=== PATIENT | female | born 1990 | race Caucasian/White ===

== ENCOUNTER 2018-06-09 17:25 | Inpatient (IN) | payer OTHER ==
[2018-06-09] MEDS ORDERED: ELECTROLYTE-148 SOLN 500 ML IV SCH (17:45)
[2018-06-09] MEDS ORDERED: CITRIC ACID/SODIUM CITRATE 30 ML UNIT-DOSE CUP PO ONE (17:45)
[2018-06-09 18:36] VITALS: BMI 29.1
[2018-06-09] MEDS: ELECTROLYTE-148 SOLN 1,000 ML IV SCH (18:43)
[2018-06-09 18:57] LABS: HEMATOCRIT 40.5 % (32.4-45.2); HEMOGLOBIN 13.6 GM/dL (10.7-15.3); MCH 32.5 pg (25.7-33.7); MCHC 33.7 g/dl (32.0-36.0); MEAN CELL VOLUME 96.6 fl (80-96); MEAN PLT VOLUME 9.7 fl (7.5-11.1); MONO % 5.4 % (3.8-10.2); NEUT % 90.6 % (42.8-82.8); PLATELET COUNT 213 K/MM3 (134-434); RBC 4.19 M/mm3 (3.60-5.2); WHITE BLOOD COUNT 16.5 K/mm3 (4.0-10.0)
[2018-06-09 19:11] LABS: URINE APPEARANCE CLOUDY; URINE BILIRUBIN NEGATIVE (<2.0 mg/dL); URINE COLOR YELLOW; URINE GLUCOSE (UA) NEGATIVE (NEGATIVE); URINE KETONE NEGATIVE (NEGATIVE); URINE NITRITE POSITIVE (NEGATIVE); URINE UROBILINOGEN NEGATIVE mg/dL (0.2-1.0)
[2018-06-09 19:20] LABS: INR 0.99 (0.83-1.09); PROTHROMBIN TIME (PATIENT) 11.7 SEC (9.7-13.0)
--- NOTE | 2018-06-09 19:21 | HP ---
Past Medical History - Admission History Source: Patient - Past Medical History ...: 3 ...Para: 1 ...Term: 1 ...: 0 ...Spon : 1 ...Induced : 0 ...Multiple Gestation: 0 ...LMP: 09/10/17 ...EDC by [facility]: 06/17/18 - Past Surgical History Past Surgical History: Yes: Hx Myomectomy: No Hx Transabdominal Cerclage: No - Smoking History Smoking history: Never smoked Have you smoked in the past 12 months: No - Alcohol/Substance Use Hx Alcohol Use: No - Social History Usual Living Arrangement: Yes: With Child Home Medications - Allergies Allergies/Adverse Reactions: Allergies Allergy/AdvReac Type Severity Reaction Status Date / Time No Known Allergies Allergy Verified 06/09/18 17:56 - Home Medications Home Medications: Ambulatory Orders Vitamins (Sjr) - 1 tab PO DAILY 06/09/18 Review of Systems - Review of Systems Constitutional: denies: No Symptoms, Chills, Diaphoresis, Fever, Lethargy, Loss of Appetite, Malaise, Night Sweats, Unintentional Wgt. Loss, Weakness, Other Eyes: denies: No Symptoms, Blind Spots, Blurred Vision, Double Vision, Eye Pain , Floaters, Photophobia, Recent Change in Vision, Other HENT: denies: No Symptoms, Difficult Swallowing, Ear Discharge, Ear Pain, Epistaxis, Gingival Bleeding, Hearing Loss, Mouth Swelling, Nasal Congestion, Ocular Prosthesis, Throat Pain, Toothache, Ringing in Ears, Other Neck: denies: No Symptoms, Decreased ROM, Lumps, Pain on Movement, Stiffness, Swollen Glands, Tenderness, Other Cardiovascular: denies: No Symptoms, Chest Pain, Edema, Palpitations, Shortness of Breath, Other Respiratory: denies: No Symptoms, Cough, Exercise Intolerance, Hemoptysis, Orthopnea, PND, Snoring, SOB, SOB on Exertion, Wheezing, Other Gastrointestinal: denies: No Symptoms, Abdominal Pain, Bloating, Constipation, Diarrhea, Dysphagia, Indigestion, Melena, Nausea, Rectal Bleeding, Vomiting, Vomiting Blood, Other Genitourinary: denies: No Symptoms, Burning, Discharge, Dysuria, Flank Pain, Frequency, Hematuria, Incontinence, Lesions, Menses, Pain, Testicular Mass, Testicular Pain, Testicular Swelling, Urgency, Vaginal Bleeding, Other Breasts: denies: No Symptoms Reported, See HPI, Breast Implants, Discharge from Nipple, Lumps, Pain, Skin Changes, Other Integumentary: denies: No Symptoms, Blister, Bruising, Change in Color, Eczema, Erythema, Incision, Lesions, Lump, Pallor, Pruritis, Rash, Wound, Other Endocrine: denies: No Symptoms, Excessive Sweating, Flushing, Increased Hunger, Increased Thirst, Intolerance to Cold, Intolerance to Heat, Unexplained Weight Gain, Unexplained Weight Loss, Other Hematology/Lymphatic: denies: No Symptoms, Easily Bruised, Excessive Bleeding, Swollen Glands, Other Psychiatric: denies: No Symptoms, Altered Sleep Pattern, Anxiety, Depression, Hallucinations, Panic, Paranoia, Suicidal, Other Physical Exam - Maternity Constitutional: No: Well Nourished, No Distress, Calm, Anxious, Ashen, Cachectic , Diaphoresis, Mild Distress, Moderate Distress, Severe Distress, Obese, Pallor , Poor Hygeine, Thin, Other Eyes: No: WNL, Conjunctiva Clear, EOM Intact, Cataracts, Diplopia, Occular Prosthesis, PERRL, Ptosis, Sclera Icterus, Tearing, Other HENT: No: WNL, Atraumatic, Normocephalic, Drooling, Epistaxis, Hoarseness, Nasal Congestion, Pharyngeal Erythema, Rhinnorhea, Thrush, Tonsillar Exudate, Other Neck: No: WNL, Supple, Trachea Midline, Decreased ROM, Lymphadenopathy, Rigid, Tenderness, Thyromegaly, Other Cardiovascular: No: WNL, Regular Rate and Rhythm, Bradycardia, Tachycardia, Pulse Irregular, Bruit, JVD, Gallop, Murmur, Rub, S1, S2, S3, S4, Varicosities, Other Breast(s): No: WNL, Left, Right, Breast Implants, Dimpling, Discharge from Nipple, Gynecomastia, Mass, Nipple Inversion, Skin Changes, Other - Abdominal Exam/OB Number of Fetuses: Single Presentation: Vertex - Vaginal Exam/OB Vaginal Bleediing: No Dilatation (cm): closed Effacement (%): 0 Amniotic Membrane Status: Ruptured Amniotic Fluid: Yes: Clear Presentation: Vertex/Position Station: -3 - Labs Lab Results: CBC, BMP 06/09/18 18:05 Problem List - Problems (1) Spontaneous rupture of membranes Code(s): [id number] - Assessment/Plan 27yo @ 39wks here with SROM, clear fluid. Prior C/S x 1, for elective RCS Risk of procedure including: bleeding requiring transfusion and it's associated risk, infection and injury to bladder/bowel/tubes/ovaries. All questions answered. Consent signed. Harley Vazquez MD
[2018-06-09 19:24] LABS: COCAINE, UR NEGATIVE ng/ml (CUTOFF=300); METHADONE, UR NEGATIVE ng/ml (CUTOFF=300); OPIATES, URI NEGATIVE ng/ml (CUTOFF=300); PHENCYCLIDINE,URINE NEGATIVE ng/ml (CUTOFF=25); URINE AMPHETAMINES NEGATIVE ng/ml (CUTOFF=500); URINE BARBITURATES NEGATIVE ng/ml (CUTOFF=200); URINE BENZODIAZEPINES NEGATIVE ng/ml (CUTOFF=200)
[2018-06-09 19:28] LABS: ANION GAP 12 MMOL/L (8-16); BLOOD UREA NITROGEN 5 mg/dL (7-18); CHLORIDE 102 mmol/L (98-107); CO2 24 mmol/L (21-32); CREATININE 0.4 mg/dL (0.55-1.3); GLUCOSE,RANDOM 62 mg/dL (74-106); POTASSIUM 4.2 mmol/L (3.5-5.1); SODIUM 138 mmol/L (136-145)
[2018-06-09 19:55] LABS: URINE LEUK ESTERASE 3+ (NEGATIVE); URINE PROTEIN 2+ (NEGATIVE)
[2018-06-09 19:59] LABS: URINE MUCUS RARE
[2018-06-09] MEDS ORDERED: morphine SULFATE/Preservative Free 0.5 MG/ML (1cc Syringe) EP ONE (20:34)
[2018-06-09] MEDS ORDERED: morphine SULFATE/Preservative Free 0.5 MG/ML (1cc Syringe) ONE (21:11)
[2018-06-09] MEDS ORDERED: ceFAZolin SODIUM 1 GM VIAL ONE (21:11)
[2018-06-09] MEDS ORDERED: OXYTOCIN 10 UNITS/ML VIAL ONE (21:38)
[2018-06-09] MEDS ORDERED: IBUPROFEN 800 MG/8 ML IJ IVPB PRN (21:58)
[2018-06-09] MEDS ORDERED: OXYTOCIN 20 UNITS in 0.9% NS 20 UNIT/1,000 ML INFUS.BAG IV SCH (22:00)
--- NOTE | 2018-06-09 22:03 | OP ---
Operative Note - Note: Operative Date: 06/09/18 Pre-Operative Diagnosis: 39week , Prior Delivery, PROM, desires elective repeat Operation: Repeat Low Transverse Delivery Findings: VFI, MIRI, No nuchal or meconium. Weight pending. Apgars 9/9. Normal tubes and ovaries bilaterally Post-Operative Diagnosis: Same as Pre-op Surgeon: Sushma Vazquez Warehouse Order Filler: Mina Busby Anesthesia: Spinal Estimated Blood Loss (mls): 400
[2018-06-09] MEDS ORDERED: OXYTOCIN 20 UNITS in 0.9% NS 20 UNIT/1,000 ML INFUS.BAG IV ONE (22:15)
[2018-06-10] MEDS: ONDANSETRON 4 MG/2 ML VIAL IVPUSH PRN ×2 (00:09→09:19)
[2018-06-10 07:12] LABS: BASO % 0.2 % (0-2.0); HEMATOCRIT 33.8 % (32.4-45.2); HEMOGLOBIN 11.3 GM/dL (10.7-15.3); MCH 32.1 pg (25.7-33.7); MCHC 33.3 g/dl (32.0-36.0); MEAN CELL VOLUME 96.2 fl (80-96); MEAN PLT VOLUME 9.1 fl (7.5-11.1); NEUT % 79.8 % (42.8-82.8); PLATELET COUNT 173 K/MM3 (134-434); RBC 3.52 M/mm3 (3.60-5.2); RDW 13.1 % (11.6-15.6); WHITE BLOOD COUNT 15.9 K/mm3 (4.0-10.0)
[2018-06-10] MEDS: PRENATAL VITAMINS W/ FOLIC ACID TABLET (FP) PO SCH (09:29)
--- NOTE | 2018-06-10 09:40 | PN ---
Progress Note (short form) - Note Progress Note: Post op day#1.S/P C Section under spinal anesthesia with duramorph uneventful.Patient stable and has little pain for which she is on medication.No any anesthesia related problem.Patient DC from the anesthesia care.
--- NOTE | 2018-06-10 12:09 | PN ---
Post Progress Note Type of Delivery: Repeat C/S Vital Signs: Vital Signs Temperature 98.4 F 06/10/18 09:39 Pulse Rate 76 06/10/18 09:39 Respiratory Rate 20 06/10/18 11:00 Blood Pressure 100/57 L 06/10/18 09:39 O2 Sat by Pulse Oximetry (%) 100 06/09/18 23:10 Uterus: Yes: Fundus Firm, Fundus below umbilicus Incision: Yes: Susan intact Abdomen/GI: Yes: Abdomen soft, Tolerating PO Lochia, amount: Small Extremities: Yes: Calves non-tender - Labs Labs: CBC WBC 15.9 K/mm3 (4.0-10.0) H 06/10/18 06:30 RBC 3.52 M/mm3 (3.60-5.2) L 06/10/18 06:30 Hgb 11.3 GM/dL (10.7-15.3) 06/10/18 06:30 Hct 33.8 % (32.4-45.2) D 06/10/18 06:30 MCV 96.2 fl (80-96) H 06/10/18 06:30 MCH 32.1 pg (25.7-33.7) 06/10/18 06:30 MCHC 33.3 g/dl (32.0-36.0) 06/10/18 06:30 RDW 13.1 % (11.6-15.6) 06/10/18 06:30 Plt Count 173 K/MM3 (134-434) 06/10/18 06:30 MPV 9.1 fl (7.5-11.1) 06/10/18 06:30 Absolute Neuts (auto) 12.7 K/mm3 (1.5-8.0) H 06/10/18 06:30 Neutrophils % 79.8 % (42.8-82.8) 06/10/18 06:30 Lymphocytes % 12.0 % (8-40) D 06/10/18 06:30 Monocytes % 8.0 % (3.8-10.2) 06/10/18 06:30 Eosinophils % 0.0 % (0-4.5) 06/10/18 06:30 Basophils % 0.2 % (0-2.0) D 09/29/18 06:30 Nucleated RBC % 0 % (0-0) 06/10/18 06:30 Problem List - Problems (1) S/P repeat low transverse Code(s): Z98.891 - HISTORY OF UTERINE SCAR FROM PREVIOUS SURGERY Assessment/Plan 27yo s/p RLTCS, POD#1 -Rh pos/RI/girl -Routine PP care -D/C farrell, OOB, ambulate -Po pain control -Labs reviewed -Anticipate d/c to home by POD#3 Harley Vazquez MD
[2018-06-10] MEDS: SIMETHICONE 80 MG TAB.CHEW (FP) PO PRN (16:24)
[2018-06-10] MEDS: ACETAMINOPHEN 325 MG TABLET (FP) PO PRN (16:24)
[2018-06-10] MEDS: IBUPROFEN 600 MG TABLET (FP) PO PRN (16:25)
[2018-06-10] MEDS: ELECTROLYTE-148 SOLN 1,000 ML IV SCH (19:55)
[2018-06-10] MEDS ORDERED: BISACODYL 10 MG SUPP.RECT RC PRN (21:58)
[2018-06-11] MEDS: ACETAMINOPHEN 325 MG TABLET (FP) PO PRN ×3 (02:20→20:31)
[2018-06-11] MEDS: SIMETHICONE 80 MG TAB.CHEW (FP) PO PRN ×3 (02:20→20:31)
[2018-06-11] MEDS: IBUPROFEN 600 MG TABLET (FP) PO PRN ×3 (02:21→20:31)
[2018-06-11] MEDS: oxyCODONE HCL 5 MG TABLET PO PRN (02:22)
[2018-06-11] MEDS: PRENATAL VITAMINS W/ FOLIC ACID TABLET (FP) PO SCH (09:23)
[2018-06-12] MEDS: oxyCODONE HCL 5 MG TABLET PO PRN (03:23)
[2018-06-12] MEDS: IBUPROFEN 600 MG TABLET (FP) PO PRN ×4 (03:24→21:58)
[2018-06-12] MEDS: SIMETHICONE 80 MG TAB.CHEW (FP) PO PRN ×2 (03:24→21:58)
[2018-06-12] MEDS: ACETAMINOPHEN 325 MG TABLET (FP) PO PRN ×4 (03:24→21:59)
[2018-06-12 06:53] LABS: BASO % 0.6 % (0-2.0); EOS % 2.7 % (0-4.5); HEMATOCRIT 30.8 % (32.4-45.2); HEMOGLOBIN 10.3 GM/dL (10.7-15.3); LYMPH % 22.8 % (8-40); MCH 32.7 pg (25.7-33.7); MCHC 33.6 g/dl (32.0-36.0); MEAN CELL VOLUME 97.3 fl (80-96); MEAN PLT VOLUME 8.5 fl (7.5-11.1); MONO % 8.6 % (3.8-10.2); NEUT % 65.3 % (42.8-82.8); PLATELET COUNT 182 K/MM3 (134-434); RBC 3.17 M/mm3 (3.60-5.2); RDW 13.7 % (11.6-15.6); WHITE BLOOD COUNT 10.2 K/mm3 (4.0-10.0)
[2018-06-12] MEDS: PRENATAL VITAMINS W/ FOLIC ACID TABLET (FP) PO SCH (10:04)
[2018-06-13] MEDS: IBUPROFEN 600 MG TABLET (FP) PO PRN (07:29)
[2018-06-13] MEDS: ACETAMINOPHEN 325 MG TABLET (FP) PO PRN (07:29)
[2018-06-13] MEDS: SIMETHICONE 80 MG TAB.CHEW (FP) PO PRN (07:30)
[2018-06-13] MEDS: PRENATAL VITAMINS W/ FOLIC ACID TABLET (FP) PO SCH (09:10)
[2018-06-13 09:41] VITALS: BP 124/77; PULSE 66; TEMP 98.1
--- NOTE | 2018-06-13 11:40 | DS ---
Physical Exam-MANAGER CCU Vital Signs: Vital Signs Temperature 98.1 F 06/13/18 07:25 Pulse Rate 66 06/13/18 07:25 Respiratory Rate 18 06/13/18 07:25 Blood Pressure 124/77 06/13/18 07:25 O2 Sat by Pulse Oximetry (%) 100 06/09/18 23:10 Constitutional: Yes: Well Nourished Eyes: Yes: Conjunctiva Clear HENT: Yes: Atraumatic Neck: Yes: Supple Cardiovascular: Yes: Regular Rate and Rhythm Respiratory: Yes: Regular Gastrointestinal: Yes: Normal Bowel Sounds Pelvis: Yes: WNL External Genitalia: Yes: Normal Vaginal Exam: Yes: Normal Cervix: Yes: Normal Uterus: Yes: Firm Wound/Incision: Yes: Clean/Dry, Well Approximated ...Motor Strength: WNL Psychiatric: Yes: Alert, Oriented Labs: CBC, BMP 06/12/18 06:00 06/09/18 18:05 Delivery - Delivery Type of Anesthesia: Spinal EBL (cc): 400 Delivery, Single - Stages of Labor Date 1st Stage Initiatied: 06/09/18 Time 1st Stage Initiated: 04:00 Date of Delivery: 06/09/18 Time of Delivery: 21:40 Time Placenta Delivered: 21:41 - Condition of Infant Project Eng/Elevator Service Mechanic Present: Yes Name: Georgina Latham Gender: Female Weight: 7 lb 4 oz Position: Right, OA Total Hours ROM (Hrs/Mins): 3Hrs/31Mins - 1 Minute Total Score: 9 5 Minutes Total Score: 9 - Feeding Plan Initial Plan: Elected not to breastfeed exclusively throughout hospitalization Discharge Summary Reason For Visit: LABOR ADMIT Current Active Problems S/P repeat low transverse (Acute) Spontaneous rupture of membranes (Acute) Procedures: Principal: Repeat Low Transverse Hospital Course: Routine post op care Condition: Good - Instructions Diet, Activity, Other Instructions: Regular diet No driving, no lifting, x 4 weeks F/U in clinic in 1 week Disposition: HOME - Home Medications Comprehensive Discharge Medication List: Ambulatory Orders Vitamins (Sjr) - 1 tab PO DAILY 06/09/18
--- NOTE | 2018-06-15 14:23 | PATH ---
Surgical Pathology Report Patient Name: KAI BECKHAM [facility]. Rec. #: [id number] /Age/Gender: 1990 (Age: 27) / F Account: [id number] Location: [facility] OBS/PLAN REP Taken: 06/09/2018 Received: 06/12/2018 Reported: 06/15/2018 Physicians: Sushma Vazquez Specimen(s) Received PLACENTA Clinical History G3 Para1, , spAB x1 Final Diagnosis PLACENTA: THIRD TRIMESTER PLACENTA. TRIVASCULAR CORD. MEMBRANES WITH NO DIAGNOSTIC ABNORMALITIES. Electronically Signed Braxton Zee M.D. Gross Description The specimen is received fresh labeled "placenta" and is a 418 gram, 17 x17 x 2.5cm. placenta with attached membranes and umbilical cord. The attached membranes are glistening, translucent, and insert marginally. The umbilical cord measures 47 cm. in length and averages 1.5 cm. in diameter. The cord inserts centrally, 7 centimeter to the nearest margin. No true knots or strictures are identified. Cut surface of the umbilical cord reveals 3 vessels. Sectioning reveals red-brown, spongy parenchyma. No lesions are identified. Jewel Inspector sections are submitted in three cassettes as follows: 1- membrane rolls and umbilical cord; 2-3- full thickness sections of placenta KWS/06/12/2018 sulki/06/12/2018
== END 2018-06-13 14:30 | disposition home or self-care (01) | DRG 540 ==
LOC: JDEL 17:25 → JLDR 17:26 → J3W 23:46
PROVIDERS: ADMIT Obstetrics & Gynecology; ATTEND Obstetrics & Gynecology
PROC: 10D00Z1 Extraction of Products of Conception, Low, Open Approach (ICD-10-PCS; principal; 2018-06-09)
DX: O34.211 Maternal care for low transverse scar from previous cesarean delivery (principal); N85.8 Other specified noninflammatory disorders of uterus; Z3A.39 39 weeks gestation of pregnancy; Z37.0 Single live birth
CPT/HCPCS: 36415; 80048; 80307; 81003; 81015; 85025; 85610; 85730; 86593; 86850; 86900; 86901